=== PATIENT | male | born 1950 | race Caucasian/White ===

== ENCOUNTER 2016-10-24 19:43 | Emergency (ER) | payer MEDICARE, OTHER ==
[~2016-10-24] VITALS: Ht 177.8 cm; Wt 99.8 kg
[~2016-10-24 19:43] MED LIST: OMEP20CA9 PO
[2016-10-24] MEDS ORDERED: IV NORMAL SALINE 1000ML BAG 1,000 ML IV SCH (21:04)
[2016-10-24 21:12] LABS: BASO # 0.1 x10^3/uL (0.0-0.2); BASO % 1 % (0-3); EOS % 3 % (0-3); HEMATOCRIT 41.8 % (39.0-53.0); HEMOGLOBIN 14.4 g/dL (13.0-17.5); LYMPH # 2.7 x10^3/uL (1.0-4.8); LYMPH % 32 % (24-48); MEAN CORPUSCULAR HEMOGLOBIN 32 pg (25-35); MEAN CORPUSCULAR HGB CONC 34 g/dL (31-37); MEAN CORPUSCULAR VOLUME 94 fL (79-100); MONO % 7 % (0-9); NEUT % 57 % (31-73); PLATELET COUNT 197 x10^3/uL (140-400); RED BLOOD COUNT 4.45 x10^6/uL (4.30-5.70); RED CELL DISTRIBUTION WIDTH 12.4 % (11.5-14.5); WHITE BLOOD COUNT 8.3 x10^3/uL (4.0-11.0)
[2016-10-24] MEDS ORDERED: FENTANYL PF 100 MCG/2 ML VIAL. IV PRN (21:15)
[2016-10-24 21:29] LABS: CALCIUM 9.1 mg/dL (8.5-10.1); GFR 74.5; POTASSIUM 4.1 mmol/L (3.5-5.1)
[2016-10-24 21:36] LABS: ALBUMIN 3.6 g/dL (3.4-5.0); ALBUMIN/GLOBULIN RATIO 1.1 (1.0-1.7); TOTAL BILIRUBIN 0.4 mg/dL (0.2-1.0); TOTAL PROTEIN 6.8 g/dL (6.4-8.2)
[2016-10-24 21:42] LABS: CKMB MASS 0.8 ng/mL (0.0-3.6); CREATINE KINASE 68 U/L (39-308)
[2016-10-24] MEDS ORDERED: ONDANSETRON PF 4 MG/2 ML VIAL. IV ONE (21:45)
--- NOTE | 2016-10-24 21:56 | RAD ---
PROCEDURE Limited abdominal ultrasound. HISTORY Epigastric and right upper quadrant pain. TECHNIQUE Real-time ultrasound imaging of the right upper quadrant of the abdomen is performed. COMPARISON None. FINDINGS The pancreas is obscured due to overlying bowel gas. The IVC is not well seen. The liver is increased in echogenicity. There is decreased through transmission. Portal flow is hepatopetal. Right hepatic lobe measures 15.7 cm, normal. Gallbladder is distended. There is no wall thickening. No cholelithiasis is identified. Common bile duct is normal in caliber measuring 5 millimeters. Right kidney length is 12 cm. There is an upper pole cortical cyst measuring up to 2.2 cm. IMPRESSION 1. Fatty infiltration of the liver. 2. No sonographic evidence of gallbladder disease. 3. Small right renal cyst. Electronically signed by: Harry Rebollar MD (Oct 24, 2016 21:54:45)
--- NOTE | 2016-10-24 22:09 | PHYS DOC ---
Past Medical History Past Medical History: Asthma, COPD, Diabetes-Type II, Hypertension Past Surgical History: Tonsillectomy, Other Additional Past Surgical Histo: 4 BACK SX, LEFT HAND, JAW SX, LEFT SHOULDER Alcohol Use: Occasionally Drug Use: Marijuana Adult General Chief Complaint Chief Complaint: ABDOMINAL PAIN HPI HPI Patient is a 66 year old male who presents with complaint of epigastric and right upper quadrant abdominal pain that started this morning. Patient states that he had an episode 2 weeks ago that resolved spontaneously. Patient states he woke this morning with sharp, cramping abdominal pain which he currently rates as 8 out of 10. Patient denies any associated fevers or shortness of breath but states that he has had nausea and diaphoresis associated with his symptoms. Patient has history of hypertension, COPD, and type 2 diabetes mellitus. Patient denies any history of similar symptoms before the past 2-3 weeks. The patient states that he was scheduled to have an ultrasound done in the next 3 days but due to the severity of pain the patient came to the emergency department for evaluation. Patient also Dr. Bills for primary care. Review of Systems Review of Systems Constitutional: Diaphoresis, Denies fever or chills [] Eyes: Denies change in visual acuity, redness, or eye pain [] HENT: Denies nasal congestion or sore throat [] Respiratory: Denies cough or shortness of breath [] Cardiovascular: Denies chest pain or edema [] GI: Abdominal pain, nausea, denies vomiting, bloody stools or diarrhea [] : Denies dysuria or hematuria [] Musculoskeletal: Denies back pain or joint pain [] Integument: Denies rash or skin lesions [] Neurologic: Denies headache, focal weakness or sensory changes [] Current Medications Current Medications Current Medications Medications (Trade) Dose Ordered Sig/Claudine Start Time Stop Time Status Last Admin Dose Admin Fentanyl Citrate 50 mcg 50 mcg PRN Q15MIN PRN 10/24/16 21:15 10/24/16 23:11 DC 10/24/16 21:15 50 MCG Ondansetron HCl (Zofran) 4 mg 1X ONCE 10/24/16 21:45 10/24/16 21:46 DC 10/24/16 21:14 4 MG Sodium Chloride (Iv Sodium Chloride 0.9% 1000ml Bag) 1,000 ml @ 1,000 mls/hr Q1H 10/24/16 21:04 4/11/17 22:03 DC 10/24/16 21:14 1,000 MLS/HR Allergies Allergies Allergies Coded Allergies Type Severity Reaction Last Updated Verified No Known Drug Allergies 04/18/16 No Physical Exam Physical Exam Constitutional: Alert, afebrile, appears in moderate discomfort. [] HENT: Normocephalic, atraumatic, bilateral external ears normal, oropharynx moist, no oral exudates, nose normal. [] Eyes: PERRLA, EOMI, conjunctiva normal, no discharge. [] Neck: Normal range of motion, no tenderness, supple, no stridor. [] Cardiovascular:Heart rate regular rhythm, no murmur [] Lungs & Thorax: Bilateral breath sounds clear to auscultation [] Abdomen: Bowel sounds normal, soft, epigastric and right upper quadrant tenderness to palpation with guarding, no rebound tenderness, no masses, no pulsatile masses. [] Skin: Warm, dry, no erythema, no rash. [] Back: No tenderness, no CVA tenderness. [] Extremities: No tenderness, no cyanosis, no clubbing, ROM intact, no edema. [] Neurologic: Alert and oriented X 3, normal motor function, normal sensory function, no focal deficits noted. [] Current Patient Data Vital Signs Vital Signs Date Time Temp Pulse Resp B/P Pulse Ox O2 Delivery O2 Flow Rate FiO2 10/24/16 22:56 54 18 150/80 97 Room Air 10/24/16 20:07 97.9 97.9 Lab Values Laboratory Tests Test 10/24/16 20:25 White Blood Count 8.3x10^3/uL (4.0-11.0) Red Blood Count 4.45x10^6/uL (4.30-5.70) Hemoglobin 14.4g/dL (13.0-17.5) Hematocrit 41.8% (39.0-53.0) Mean Corpuscular Volume 94fL (79-100) Mean Corpuscular Hemoglobin 32pg (25-35) Mean Corpuscular Hemoglobin Concent 34g/dL (31-37) Red Cell Distribution Width 12.4% (11.5-14.5) Platelet Count 197x10^3/uL (140-400) Neutrophils (%) (Auto) 57% (31-73) Lymphocytes (%) (Auto) 32% (24-48) Monocytes (%) (Auto) 7% (0-9) Eosinophils (%) (Auto) 3% (0-3) Basophils (%) (Auto) 1% (0-3) Neutrophils # (Auto) 4.8x10^3uL (1.8-7.7) Lymphocytes # (Auto) 2.7x10^3/uL (1.0-4.8) Monocytes # (Auto) 0.5x10^3/uL (0.0-1.1) Eosinophils # (Auto) 0.2x10^3/uL (0.0-0.7) Basophils # (Auto) 0.1x10^3/uL (0.0-0.2) Sodium Level 140mmol/L (136-145) Potassium Level 4.1mmol/L (3.5-5.1) Chloride Level 103mmol/L (98-107) Carbon Dioxide Level 27mmol/L (21-32) Anion Gap 10 (6-14) Blood Urea Nitrogen 13mg/dL (8-26) Creatinine 1.0mg/dL (0.7-1.3) Estimated GFR (Cockcroft-Gault) 74.5 BUN/Creatinine Ratio 13 (6-20) Glucose Level 103mg/dL (70-99) H Calcium Level 9.1mg/dL (8.5-10.1) Total Bilirubin 0.4mg/dL (0.2-1.0) Aspartate Amino Transferase (AST) 16U/L (15-37) Alanine Aminotransferase (ALT) 27U/L (16-63) Alkaline Phosphatase 119U/L (46-116) H Creatine Kinase 68U/L (39-308) Creatine Kinase MB (Mass) 0.8ng/mL (0.0-3.6) Creatine Kinase MB Relative Index % (0-4) Troponin I Quantitative < 0.017ng/mL (0.000-0.055) Total Protein 6.8g/dL (6.4-8.2) Albumin 3.6g/dL (3.4-5.0) Albumin/Globulin Ratio 1.1 (1.0-1.7) Lipase 249U/L (73-393) Laboratory Tests 10/24/16 20:25 Laboratory Tests 10/24/16 20:25 EKG EKG Interpreted by me: Heart rate 63, sinus rhythm, normal intervals, normal axis, no acute ST/T-wave abnormalities present [] Radiology/Procedures Radiology/Procedures [facility] [address] [place] [address] IMAGING REPORT Signed PATIENT: SUBHASH FISHMAN ACCOUNT: [id number] : 1950 LOCATION: ER AGE: 66 SEX: M EXAM STATUS: REG ER ORD. PHYSICIAN: SELVIN PATEL MD REASON: epigastric and right upper quadrant pain PROCEDURE: ABDOMEN LTD PROCEDURE Limited abdominal ultrasound. HISTORY Epigastric and right upper quadrant pain. TECHNIQUE Real-time ultrasound imaging of the right upper quadrant of the abdomen is performed. COMPARISON None. FINDINGS The pancreas is obscured due to overlying bowel gas. The IVC is not well seen. The liver is increased in echogenicity. There is decreased through transmission. Portal flow is hepatopetal. Right hepatic lobe measures 15.7 cm, normal. Gallbladder is distended. There is no wall thickening. No cholelithiasis is identified. Common bile duct is normal in caliber measuring 5 millimeters. Right kidney length is 12 cm. There is an upper pole cortical cyst measuring up to 2.2 cm. IMPRESSION 1. Fatty infiltration of the liver. 2. No sonographic evidence of gallbladder disease. 3. Small right renal cyst. Electronically signed by: Harry Rebollar MD (Oct 24, 2016 21:54:45) DICTATED and SIGNED BY: HARRY REBOLLAR MD DATE: 10/24/162153 CC: SELVIN PATEL MD; GENA BILLS MD ~ [] Course & Med Decision Making Course & Med Decision Making Pertinent Labs and Imaging studies reviewed. (See chart for details) Patient was given IV fluids, fentanyl, and Zofran. On reevaluation, patient states that his symptoms have resolved at this time. The patient's ultrasound did not reveal evidence of cholelithiasis but did show signs of gallbladder distention. After speaking with the patient, he stated that he was scheduled to have an upper GI study done through Dr. Perez's office. I did recommend that if further imaging did not reveal acute evidence of cause of patient's symptoms that a nuclear medicine hepatobiliary scan may be necessary to evaluate for possible gallbladder dysfunction as a cause for his symptoms. Advised that the patient follow-up with his primary doctor in the next 2-3 days. Patient was prescribed Bentyl and advised to continue on Tylenol and acid reducing medication at home until follow-up. Advised return emergency department for any worsening symptoms. Patient voiced understanding and in agreement with treatment plan. Dragon Disclaimer Dragon Disclaimer This electronic medical record was generated, in whole or in part, using a voice recognition dictation system. Departure Departure Impression: Primary Impression: Abdominal pain Disposition: HOME, SELF-CARE Condition: IMPROVED Referrals: GENA BILLS MD (PCP) Patient Instructions: Abdominal Pain (Nonspecific) Additional Instructions: follow-up in 2-3 days with your primary doctor. Return to the emergency department for any worsening symptoms. Scripts Dicyclomine Hcl (Bentyl)10 Mg Capsule1 Cap PO TID #30 CAP Ref 0 Prov:SELVIN PATEL MD 10/24/16 Problem Qualifiers Primary Impression: Abdominal pain Abdominal location: epigastric Qualified Code: R10.13 - Epigastric pain SELVIN PATEL MD Oct 24, 2016 22:09
[2016-10-24] MEDS ORDERED: DICY10CA53 PO (22:36)
[2016-10-24 22:56] VITALS: BP 150/80
--- NOTE | 2016-10-25 06:47 | EKG ---
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
--- NOTE | 2016-10-25 08:53 | RAD ---
Portable AP upright view CXR: Clinical indications: Chest pain today. Epigastric pain. Comparison: January 13, 2010 Findings: No acute lung infiltrate or pleural effusion or pulmonary edema or lung mass or pneumothorax is seen. The heart size, pulmonary vasculature, mediastinum and both darius are unremarkable. Impression: No acute radiographic abnormality is seen.
== END 2016-10-24 23:00 | disposition home or self-care (01) ==
LOC: ER 19:43
DX: R10.13 Epigastric pain (principal); E11.9 Type 2 diabetes mellitus without complications; I10 Essential (primary) hypertension; J44.9 Chronic obstructive pulmonary disease, unspecified; F12.10 Cannabis abuse, uncomplicated; Z90.89 Acquired absence of other organs
CPT/HCPCS: 36415; 71010; 76705; 80053; 82553; 83690; 84484; 85027; 93005; 96361; 96374; 96375; 99285; J2405; J3010; J7030

== ENCOUNTER → 2016-10-27 | Outpatient (CLI) | payer MEDICARE, OTHER ==
[~2016-10-27] VITALS: Ht 177.8 cm; Wt 99.8 kg
[~2016-10-27] MED LIST changes: +DICY10CA53 PO; +MORPHINE SULFATE 2 MG/ML DISP.SYRIN. IV ONE; +MORPHINE SULFATE 4 MG/ML DISP.SYRIN. IM ONE; +MORPHINE SULFATE 4 MG/ML DISP.SYRIN. IV ONE; +MORPHINE SULFATE 4 MG/ML DISP.SYRIN. ONE
[2016-10-27 08:35] VITALS: BP 110/64
[2016-10-27 08:51] VITALS: BP 100/60
--- NOTE | 2016-10-27 10:41 | RAD ---
Radionuclide hepatobiliary scan, 10/27/2016: History: Abdominal pain, nausea Following IV injection of 5.5 mCi of technetium 99m Choletec there was prompt uptake of the radionuclide from the blood stream by the liver. Bile duct activity develops at 10 minutes. Small bowel bowel activity was evident at 25 minutes. Gallbladder activity did not develop during the first hour. The patient was therefore injected with 4 mg of morphine IV and additional imaging performed. Following the morphine injection, gallbladder activity did develop indicating patency of the cystic duct. IMPRESSION: 1. Delayed visualization of the gallbladder. The cystic duct is patent. 2. The hepatobiliary scan is otherwise unremarkable.
== END | disposition home or self-care (01) ==
LOC: US 06:39
PROVIDERS: ATTEND Internal Medicine Gastroenterology
DX: R10.11 Right upper quadrant pain (principal); R12 Heartburn
CPT/HCPCS: 78226; 96374; 96375; A9537; J2270

== ENCOUNTER 2016-11-20 11:45 | Observation (INO) | payer MEDICARE, OTHER ==
[~2016-11-20] VITALS: Ht 177.8 cm; Wt 99.8 kg
[~2016-11-20 11:45] MED LIST changes: +BUPIVAC MPF-EPI 0.5%-1:200000 30 ML VIAL. ONE; +DIPH25CA58 PO; +IOHEXOL 300 MG/ML 50 ML VIAL. ONE; +IV RINGERS,LACTATED 1000ML 1,000 ML IV SCH; +LIDOCAINE 1% 1 ML SYRINGE. ID PRN; +LIDOCAINE 2% 100 MG/5 ML SYRINGE. ONE; -MORPHINE SULFATE 2 MG/ML DISP.SYRIN. IV ONE; +MORPHINE SULFATE 2 MG/ML DISP.SYRIN. IV PRN; -MORPHINE SULFATE 4 MG/ML DISP.SYRIN. IM ONE; -MORPHINE SULFATE 4 MG/ML DISP.SYRIN. IV ONE; -MORPHINE SULFATE 4 MG/ML DISP.SYRIN. ONE; +ONDANSETRON PF 4 MG/2 ML VIAL. IV PRN; +PROCHLORPERAZINE 10 MG/2 ML VIAL. IV PRN; +PROPOFOL 20 ML IV ONE; +ROCURONIUM 50 MG/5 ML VIAL. ONE; +SUCCINYLCHOLINE 200 MG/10 ML VIAL. ONE; +SURGICEL HEMOSTAT 4X8 EACH. ONE; +fentaNYL PF VIAL 100 MCG/2 ML VIAL IV PRN; +fentaNYL PF VIAL 100 MCG/2 ML VIAL ONE
[2016-11-20] MEDS ORDERED: ACETAMINOPHEN INTRAVENOUS 100 ML IV ONE (12:39)
[2016-11-20] MEDS ORDERED: DEXAMETHASONE SOD PHOS 20 MG/5 ML VIAL. ONE (12:54)
[2016-11-20] MEDS ORDERED: DESFLURANE 31 TO 60 MINUTES IH ONE (12:54)
[2016-11-20] MEDS ORDERED: GLYCOPYRROLATE 1 MG/5 ML VIAL. ONE (12:55)
[2016-11-20] MEDS ORDERED: ONDANSETRON PF 4 MG/2 ML VIAL. ONE (12:55)
[2016-11-20] MEDS ORDERED: NEOSTIGMINE METHYLSULFATE 5 MG/5 ML SYRINGE. ONE (12:56)
[2016-11-20] MEDS ORDERED: fentaNYL PF VIAL 100 MCG/2 ML VIAL ONE (12:59)
[2016-11-20] MEDS ORDERED: LABETALOL 20 MG/4 ML DISP.SYRIN. ONE (13:07)
--- NOTE | 2016-11-20 13:28 | RAD ---
Indication: Intraoperative claims gram. Fluoroscopy was provided for the performance of an intraoperative cholangiogram. Contrast has been injected via the cystic duct remnant. There is contrast within nondilated intrahepatic and extra hepatic bile ducts. 4 images were obtained. No filling defect is identified to suggest retained stone. There is contrast in the duodenum. 0.2 minutes of fluoroscopy time was utilized Impression: No evidence of retained common duct stone.
[2016-11-20] MEDS ORDERED: IV 1/2 NORMAL SALINE 1,000 ML IV SCH (13:59)
--- NOTE | 2016-11-20 13:59 | PDOC4 ---
Operative Note Operative Note Operative Note: Preoperative Diagnosis: Acalculous cholecystitis Postoperative Diagnosis: Same Procedure: Laparoscopic cholecystectomy with intraoperative cholangiogram Surgeons: Silvio Anesthesia: GenSandy Estimated Blood Loss: 20 mL Specimen: Gallbladder to pathology Drains: None Complications: None Indications: The patient is a 66-year-old male who is been experiencing recurrent upper abdominal pain consistent with biliary colic. He underwent a thorough GI evaluation. This included a PIPIDA scan which showed delayed visualization of the gallbladder requiring morphine administration. He was referred for concern of acalculus cholecystitis. Surgical treatment was offered by means of a laparoscopic cholecystectomy. The risks of surgery were discussed which include bleeding, infection, bile duct injury, bile leak, pain, the potential for additional surgeries or procedures. The patient understands and would like to proceed. Description: The patient was taken to the operating room and laid supine on the operating table. General anesthesia was performed. The abdomen was prepped with ChloraPrep and draped in a standard surgical fashion. A small infraumbilical incision was made with a scalpel. The Veress needle was then inserted and a pneumoperitoneum was then created. A 5 mm trocar was then inserted and the laparoscope was introduced. In the upper midabdomen a 5 mm trocar was inserted and in the right upper quadrant two 5 mm trochars were inserted. The gallbladder was retracted cephalad. The gallbladder showed a prominent fibrotic reaction consistent with chronic cholecystitis. The cystic duct was dissected free from surrounding tissues. One clip was placed on the duct near the gallbladder junction. An opening was made in the duct and a cholangiocatheter placed within and secured with a clip. Using contrast dye and fluoroscopy an intraoperative cholangiogram was performed that appeared unremarkable. The clip and catheter were then withdrawn. Three clips were placed on the cystic duct and it was divided. The cystic artery was then identified, dissected free, doubly clipped and divided as well. The gallbladder was then mobilized away from the liver with cautery. The umbilical 5 millimeter trocar was exchanged for an 11 millimeter trocar. The gallbladder was then placed in an endoscopic bag and extracted at the umbilical trocar site. The fascia there was closed with an 0 Vicryl suture. All blood and irrigation fluid was suctioned and hemostasis was good. The remaining ports were removed and the pneumoperitoneum was relieved. The skin incisions were injected with half percent Marcaine with epinephrine, and all were closed using 4-0 Monocryl suture. Steri-Strips and dressings were then applied. The patient tolerated the procedure well and was sent to the recovery room in stable condition. At the end of the case all counts were correct. MAEVE PEREZ MD November 20, 2016 13:59
[2016-11-20] MEDS ORDERED: 0.9 % SODIUM CHLORIDE 10 ML DISP.SYRIN. IV PRN (14:00)
[2016-11-20] MEDS ORDERED: ONDANSETRON PF 4 MG/2 ML VIAL. IV PRN (14:00)
[2016-11-20] MEDS ORDERED: oxyCODONE/APAP 5/325 1 TAB TABLET PO PRN ×2 (14:00)
[2016-11-20] MEDS ORDERED: HYDROmorphone 2 MG/ML VIAL IV PRN (14:00)
[2016-11-20] MEDS: fentaNYL PF VIAL 100 MCG/2 ML VIAL IV PRN ×2 (14:17→14:45)
[2016-11-20] MEDS: HYDROmorphone 2 MG/ML VIAL IV PRN ×4 (14:54→16:55)
[2016-11-20 19:00] VITALS: BP 129/61
[2016-11-20] MEDS ORDERED: ACETAMINOPHEN 325 MG TABLET. PO PRN (20:30)
[2016-11-20 23:00] VITALS: BP 118/43
[2016-11-21 03:00] VITALS: BP 113/53
--- NOTE | 2016-11-21 06:00 | ACF ---
Admission Forms Criteria GALLBLADDER OR BILE DUCT INFLAMMATION OR STONE Clinical Indications for Admission to Inpatient Care ( Place 'X' for any and all applicable criteria): Admission is indicated for patients with ANY ONE of the following(1)(2)(3)(4)(5) : [ ]I. Acute cholecystitis as indicated by ALL of the following: [ ]a) Right upper quadrant pain, mass, or tenderness [ ]b) Systemic signs of inflammation indicated by ANY ONE of the following: [ ]i) Fever [ ]ii) C-reactive protein level greater than 10 mg/L (95 nmol/L) [ ]iii) White blood cell count greater than 10,000/mm3 (10 x109/L) or less than 4000/mm3 (4 x109/L) [ ]II. Inpatient admission required rather than observation care (Also use Gallbladder or Bile Duct Inflammation or Stone: Observation Care as appropriate) because of ANY ONE of the following: [ ]a) Common bile duct obstruction diagnosed [ ]b) Vomiting that is severe or persistent [ ]c) Severe pain requiring acute inpatient management [ ]d) Signs of intestinal obstruction or peritonitis [A] [ ]e) Severe electrolyte abnormalities requiring inpatient care [ ]f) Absent bowel sounds with complete ileus(8) [ ]g) Hemodynamic instability [ ]h) High fever or infection requiring inpatient admission as indicated by ANY ONE of the following (9): [ ]1) Appropriate outpatient or observation care antimicrobial Treatment. unavailable, not effective, or not feasible [ ]2) Temperature greater than 104.9 degrees F (40.5 degrees C) (oral) [ ]3) Temperature greater than 103.1 degrees F (39.5 degrees C) (oral) or less than 96.8 degrees F (36 degrees C) (rectal) that does not respond to all emergency treatment measures [ ]4) Documented bacteremia [ ]i) IV fluid to replace significant ongoing losses (greater than 3 L/m2 per day) [ ]j) Percutaneous or open drainage (eg, abscess, biliary tract) procedures [X]k) Immediate inpatient surgery [ ]l) Other condition, treatment or monitoring requiring inpatient admission [ ]III. Acute cholangitis as indicated by ALL of the following(9)(10): [ ]a) Systemic signs of inflammation indicated by ANY ONE of the following: [ ]i) Fever [ ]ii) C-reactive protein level greater than 10 mg/L (95 nmol /L) [ ]iii) White blood cell count greater than 10,000/mm3 (10 x109/L) or less than 4000/mm3 (4 x109/L) [ ]b) Evidence of common bile duct disease indicated by ANY ONE of the following: [ ]i) Total serum bilirubin level greater than or equal to 2 mg/dL (34 micromoles/L) [ ]ii) Liver function test (alkaline phosphatase (ALP), r- glutamyltransferase (GGT), aspartate aminotransferase (AST), or alanine aminotransferase (ALT)) greater than 1.5 times the upper limit of normal[B] [ ]iii) Hepatobiliary imaging showing biliary dilatation or evidence of etiology (eg, stricture, stone, previously placed stent) Extended stay beyond goal length of stay may be needed for (1)(2)): [ ]a) Bacteremia or Hemodynamic instability [ ]b) Cholecystectomy [ ]c) Other surgical procedure(24) [ ]d) Percutaneous or endoscopic ultrasound-guided cholecystostomy The original [facility] [employer] content created by [facility] [employer] has been revised. The portions of the content which have been revised are identified through the use of italic text or in bold, and [facility] has neither reviewed nor approved the modified material. All other unmodified content is copyright [facility]. Please see references footnoted in the original [facility] edition 2016 OLGA BARAJAS November 21, 2016 06:00
[2016-11-21 07:00] VITALS: BP 134/53
[2016-11-21] MEDS ORDERED: PANTOPRAZOLE 40 MG TABLET.DR. PO SCH (07:30)
[2016-11-21 11:00] VITALS: BP 123/47
--- NOTE | 2016-11-21 11:57 | PDOC ---
PROGRESS NOTES Subjective Subjective doing well, not wanting pain meds Objective Objective Vital Signs Date Time Temp Pulse Resp B/P (MAP) Pulse Ox O2 Delivery O2 Flow Rate FiO2 11/21/16 11:00 98.1 60 18 123/47 (72) 92 Room Air 98.1 11/20/16 17:30 2.0 Intake and Output 11/21/16 07:00 Intake Total 1550 ml Balance 1550 ml Intake Oral 900 ml IV Total 650 ml # Voids 3 Physical Exam Abdomen: Soft Assessment Assessment Acalculous cholecystitis, POD 1 lap sheila Plan Plan of Care Discharge Comment Review of Relevant I have reviewed the following items betsy (where applicable) has been applied. Medications Current Medications Ondansetron HCl (Zofran) 4 mg PRN Q6HRS PRN IV NAUSEA/VOMITING; Start 11/20/16 at 07:00; Stop 11/21/16 at 06:59; Status DC Fentanyl Citrate (Fentanyl 2ml Vial) 25 mcg PRN Q5MIN PRN IV MILD PAIN; Start 11/20/16 at 07:00; Stop 11/21/16 at 06:59; Status DC Fentanyl Citrate (Fentanyl 2ml Vial) 50 mcg PRN Q5MIN PRN IV MODERATE PAIN Last administered on 11/20/16 14:45; Start 11/20/16 at 07:00; Stop 11/21/16 at 06: 59; Status DC Morphine Sulfate 1 mg PRN Q10MIN PRN IV SEVERE PAIN; Start 11/20/16 at 07:00; Stop 11/21/16 at 06:59; Status DC Ringer's Solution 1,000 ml @ 30 mls/hr Q24H IV Last administered on 11/20/16 12:23; Start 11/20/16 at 07:00; Stop 11/20/16 at 18:59; Status DC Lidocaine HCl 2 ml PRN 1X PRN ID PRIOR TO IV START; Start 11/20/16 at 07:00; Stop 11/21/16 at 06:59; Status DC Hydromorphone HCl (Dilaudid) 0.5 mg PRN Q10MIN PRN IV SEV PAIN, Second choice Last administered on 11/20/16 16:55; Start 11/20/16 at 07:00; Stop 11/21/16 at 06: 59; Status DC Prochlorperazine Edisylate (Compazine) 5 mg PACU PRN PRN IV NAUSEA, MRX1; Start 11/20/16 at 07:00; Stop 11/21/16 at 06:59; Status DC Cefazolin Sodium/ Dextrose 50 ml @ 100 mls/hr 1X PREOP PRN IV Prior to Surgery Last administered on 11/20/16 12:43; Start 11/20/16 at 08:00 Cellulose 1 each STK-MED ONCE .ROUTE ; Start 11/20/16 at 09:58; Stop 11/20/16 at 09:59; Status DC Bupivacaine HCl/ Epinephrine Bitart (Sensorcain-Mpf Epi 0.5%-1:[id number]) 30 ml STK -MED ONCE .ROUTE Last administered on 11/20/16 12:58; Start 11/20/16 at 09:58; Stop 11/20/16 at 09:59; Status DC Iohexol (Omnipaque 300 Mg/ml) 50 ml STK-MED ONCE .ROUTE Last administered on 12:58; Start 11/20/16 at 09:58; Stop 11/20/16 at 09:59; Status DC Propofol 20 ml @ As Directed STK-MED ONCE IV ; Start 11/20/16 at 10:35; Stop 11/20 at 10:36; Status DC Lidocaine HCl (Lidocaine HCl 2% Abboject) 100 mg STK-MED ONCE .ROUTE ; Start 11/20/16 at 10:35; Stop 11/20/16 at 10:36; Status DC Fentanyl Citrate (Fentanyl 2ml Vial) 100 mcg STK-MED ONCE .ROUTE ; Start at 10:35; Stop 11/20/16 at 10:36; Status DC Succinylcholine Chloride (Anectine) 200 mg STK-MED ONCE .ROUTE ; Start 11/20/16 at 10:35; Stop 11/20/16 at 10:36; Status DC Rocuronium [facility] (Zemuron) 50 mg STK-MED ONCE .ROUTE ; Start 11/20/16 at 11:02 ; Stop 11/20/16 at 11:03; Status DC Acetaminophen 100 ml @ As Directed STK-MED ONCE IV ; Start 11/20/16 at 12:39; Stop 11/20/16 at 12:40; Status DC Dexamethasone Sodium Phosphate (Decadron) 20 mg STK-MED ONCE .ROUTE ; Start 11/20 at 12:54; Stop 11/20/16 at 12:55; Status DC Desflurane (Suprane) 30 ml STK-MED ONCE IH ; Start 11/20/16 at 12:54; Stop at 12:55; Status DC Ondansetron HCl (Zofran) 4 mg STK-MED ONCE .ROUTE ; Start 11/20/16 at 12:55; Stop 11/20/16 at 12:56; Status DC Glycopyrrolate (Robinul) 1 mg STK-MED ONCE .ROUTE ; Start 11/20/16 at 12:55; Stop 11/20/16 at 12:56; Status DC Neostigmine Methylsulfate 5 mg STK-MED ONCE .ROUTE ; Start 11/20/16 at 12:56; Stop 11/20/16 at 12:57; Status DC Fentanyl Citrate (Fentanyl 2ml Vial) 100 mcg STK-MED ONCE .ROUTE ; Start at 12:59; Stop 11/20/16 at 13:00; Status DC Labetalol HCl (Normodyne) 20 mg STK-MED ONCE .ROUTE ; Start 11/20/16 at 13:07; Stop 11/20/16 at 13:08; Status DC Sodium Chloride (Normal Saline Flush) 3 ml QSHIFT PRN IV AFTER MEDS AND BLOOD DRAWS; Start 11/20/16 at 14:00 Sodium Chloride 1,000 ml @ 80 mls/hr [id number] IV ; Start 11/20/16 at 13:59; Stop 11/21/16 at 01:31; Status DC Oxycodone/ Acetaminophen (Percocet 5/325) 1 tab PRN Q4HRS PRN PO MILD PAIN, 1ST CHOICE; Start 11/20/16 at 14:00 Oxycodone/ Acetaminophen (Percocet 5/325) 2 tab PRN Q4HRS PRN PO MODERATE PAIN , SEVERE PAIN; Start 11/20/16 at 14:00 Hydromorphone HCl (Dilaudid) 0.2 mg PRN Q1HR PRN IV PAIN; Start 11/20/16 at 14: 00 Ondansetron HCl (Zofran) 4 mg PRN Q6HRS PRN IV NAUESA, 1ST CHOICE; Start at 14:00 Pantoprazole Sodium (Protonix) 40 mg DAILYAC PO ; Start 11/21/16 at 07:30 Acetaminophen (Tylenol) 650 mg PRN Q6HRS PRN PO MILD PAIN Last administered on 11/20/16t 20:49; Start 11/20/16 at 20:30 Active Scripts Active Bentyl (Dicyclomine Hcl) 10 Mg Capsule 1 Cap PO TID Reported Benadryl (Diphenhydramine Hcl) 25 Mg Capsule 1 Cap PO BID Omeprazole 20 Mg Capsule. 1 Cap PO DAILY Vitals/I & O Vital Sign - Last 24 Hours 11/20/16 11/20/16 11/20/16 11/20/16 12:09 13:50 13:50 13:55 Temp 98.4 98.9 98.4 98.9 Pulse 60 72 65 Resp 18 27 21 B/P (MAP) 145/71 217/119 179/85 Pulse Ox 96 95 96 O2 Delivery Room Air Mask Simple Mask Simple Mask O2 Flow Rate 5 5 10 11/20/16 11/20/16 11/20/16 11/20/16 14:10 14:25 14:40 14:55 Pulse 70 71 55 57 Resp 24 18 14 14 B/P (MAP) 179/85 176/83 165/72 152/72 Pulse Ox 100 93 91 91 O2 Delivery Simple Mask Room Air Room Air Nasal Cannula O2 Flow Rate 10 2 11/20/16 11/20/16 11/20/16 11/20/16 15:10 15:25 15:40 15:55 Pulse 64 68 63 70 Resp 14 12 12 12 B/P (MAP) 173/87 153/72 153/72 148/74 Pulse Ox 94 93 93 94 O2 Delivery Nasal Cannula Nasal Cannula Nasal Cannula Nasal Cannula O2 Flow Rate 2 2 2 2 11/20/16 11/20/16 11/20/16 11/20/16 16:10 16:25 16:40 16:55 Pulse 82 80 88 80 Resp 12 12 14 14 B/P (MAP) 138/74 119/61 129/68 134/60 Pulse Ox 93 94 96 93 O2 Delivery Nasal Cannula Nasal Cannula Nasal Cannula Nasal Cannula O2 Flow Rate 2 2 2 2 5/8/17 11/20/16 11/20/16 11/20/16 17:30 19:00 20:00 23:00 Temp 97.7 97.7 97.7 97.7 Pulse 71 65 Resp 18 18 B/P (MAP) 129/61 (83) 118/43 (68) Pulse Ox 92 93 O2 Delivery Nasal Cannula Room Air Room Air Room Air O2 Flow Rate 2.0 11/21/16 11/21/16 11/21/16 11/21/16 03:00 07:00 08:00 11:00 Temp 98.0 96.6 98.1 98.0 96.6 98.1 Pulse 63 62 60 Resp 20 20 18 B/P (MAP) 113/53 (73) 134/53 (80) 123/47 (72) Pulse Ox 93 92 92 O2 Delivery Room Air Room Air Room Air Room Air Intake and Output 11/20/16 11/20/16 11/21/16 15:00 23:00 07:00 Intake Total 650 ml 400 ml 500 ml Balance 650 ml 400 ml 500 ml MAEVE PEREZ MD November 21, 2016 11:57
--- NOTE | 2016-11-21 11:59 | DISCH ---
DISCHARGE INSTRUCTIONS Condition on Discharge Condition on Discharge: Stable Activity After Discharge Activity Instructions for Disc: Other, see below (no lifting over 20 lbs X 2 weeks) Diet after Discharge Diet after Discharge: Regular Follow-Up Follow up with: Dr Perez in 2 weeks, call for appt [phone] MAEVE PEREZ MD November 21, 2016 11:59
--- NOTE | 2016-11-21 12:01 | PDOC3 ---
Discharge Summary Visit Information Date of Admission: November 20, 2016 Date of Discharge: November 21, 2016 Final Diagnosis Acalculous cholecystitis Brief Hospital Course Allergies Allergies Coded Allergies Type Severity Reaction Last Updated Verified shellfish derived Allergy Intermediate SWELLING HIVES 11/20/16 Yes Vital Signs Vital Signs Date Time Temp Pulse Resp B/P (MAP) Pulse Ox O2 Delivery O2 Flow Rate FiO2 11/21/16 11:00 98.1 60 18 123/47 (72) 92 Room Air 98.1 11/20/16 17:30 2.0 Brief Hospital Course Mr. Farley is a 66 old male who underwent a laparoscopic cholecystectomy due to acalculous cholecystitis. His postoperative recovery was uneventful and he is to be discharged on POD 1. Discharge Information Follow Up: Weeks (2 weeks) Disposition/Orders: D/C to Home Scheduled Dicyclomine Hcl (Bentyl), 1 CAP PO TID Diphenhydramine Hcl (Benadryl), 1 CAP PO BID, (Reported) Omeprazole (Omeprazole), 1 CAP PO DAILY, (Reported) MAEVE PEREZ MD November 21, 2016 12:01
--- NOTE | 2016-11-23 12:46 | PATHOLOGY ---
PATHOLOGY REPORT * * * * * * * * FINAL DIAGNOSIS: Gallbladder, cholecystectomy: - Acute and chronic cholecystitis. (SKM:fahad; d/t: 11/23/2016) REPORT ELECTRONICALLY SIGNED BY: Gianni Tenorio M.D. DATE/TIME: 11/23/2016 12:46 * * * * * * * * GROSS PATHOLOGY: Received in formalin labeled "Stewart Farley, gallbladder sac with contents," is a 7.4 x 3.1 x 1.4 cm, intact gallbladder with pink-downey serosal surfaces. Opening the gallbladder reveals velvety and light green mucosa and an average wall thickness of 0.1 cm. Calculi are not present and no masses are noted grossly. [employer] sections from the body and fundus are submitted along with the proximal margin in cassette A1. (KAH; 11/22/2016) INITIAL CPT CODE(S): A; 40832 Professional services [place] [facility] [place] [address] Technical services performed by [facility] at [address] [place] [address]. SPECIMEN(S) RECEIVED: A.Gallbladder sac with contents CLINICAL HISTORY: Acalculous cholecystitis PATIENT: STEWART FARLEY /AGE: 9 1950 (Age: 66) PATIENT #: [id number] ALT CASE #: SPECIMEN COLLECTION DATE: 11/20/2016 SPECIMEN RECEIVED DATE: 11/21/2016 [facility] - [address] [place] [address] - PHONE: [phone] * * * END OF REPORT * * *
== END 2016-11-21 13:00 | disposition home or self-care (01) ==
LOC: SURG 11:45 → 4 NORTH 13:59
PROVIDERS: ADMIT Surgery; ATTEND Surgery
DX: K80.12 Calculus of gallbladder with acute and chronic cholecystitis without obstruction (principal)
CPT/HCPCS: 47563; 74300; C1769; C1782; G0378; G0379; J0131; J0330; J1100; J1170; J2405; J2704; J2710; J3010; J3490; J7030; Q9967; 88304

== ENCOUNTER → 2017-01-12 | Outpatient (CLI) | payer MEDICARE, OTHER ==
[~2017-01-12] MED LIST changes: -BUPIVAC MPF-EPI 0.5%-1:200000 30 ML VIAL. ONE; -IOHEXOL 300 MG/ML 50 ML VIAL. ONE; -IV RINGERS,LACTATED 1000ML 1,000 ML IV SCH; -LIDOCAINE 1% 1 ML SYRINGE. ID PRN; -LIDOCAINE 2% 100 MG/5 ML SYRINGE. ONE; -MORPHINE SULFATE 2 MG/ML DISP.SYRIN. IV PRN; -ONDANSETRON PF 4 MG/2 ML VIAL. IV PRN; -PROCHLORPERAZINE 10 MG/2 ML VIAL. IV PRN; -PROPOFOL 20 ML IV ONE; -ROCURONIUM 50 MG/5 ML VIAL. ONE; -SUCCINYLCHOLINE 200 MG/10 ML VIAL. ONE; -SURGICEL HEMOSTAT 4X8 EACH. ONE; -fentaNYL PF VIAL 100 MCG/2 ML VIAL IV PRN; -fentaNYL PF VIAL 100 MCG/2 ML VIAL ONE
--- NOTE | 2017-01-12 13:41 | RAD ---
Chest CT without contrast History: Follow-up of lung nodules. Comparison: April 18, 2016. Technique: Noncontrast helical CT scanning of the chest was performed. PQRS Compliance Statement: One or more of the following individualized dose reduction techniques were utilized for this examination: 1. Automated exposure control 2. Adjustment of the mA and/or kV according to patient size 3. Use of iterative reconstruction technique Findings: Previously seen noncalcified lung nodules measuring 4 mm or less in size are again noted and are unchanged consistent with a benign finding. No new lung nodule or lung infiltrate is seen. No pleural effusion or pneumothorax is seen. The proximal bronchial tree is patent. No focal aneurysmal dilatation of the thoracic aorta is seen. The heart size is normal and no pericardial effusion is seen. Mild calcified atheromatous disease of the coronary arteries is seen. No adrenal mass is seen. Diffuse fatty infiltration of the liver is evident. No osteolytic process is seen. A hemangioma of T12 is seen. IMPRESSION: Stable lung nodules measuring 4 mm or less in size consistent with a benign finding. No new lung nodules or new lung infiltrates are seen. Mild calcified atheromatous disease of the coronary arteries.
== END | disposition home or self-care (01) ==
LOC: CT 10:19
PROVIDERS: ATTEND Family Medicine
DX: R91.8 Other nonspecific abnormal finding of lung field (principal); F17.210 Nicotine dependence, cigarettes, uncomplicated
CPT/HCPCS: 71250

== ENCOUNTER 2017-04-09 02:21 | Inpatient (IN) | payer MEDICARE, OTHER ==
[~2017-04-09] VITALS: Ht 175.3 cm; Wt 98.0 kg
[2017-04-09 02:45] LABS: BASO # 0.1 x10^3/uL (0.0-0.2); BASO % 1 % (0-3); EOS % 1 % (0-3); HEMATOCRIT 41.2 % (39.0-53.0); HEMOGLOBIN 14.3 g/dL (13.0-17.5); LYMPH # 1.7 x10^3/uL (1.0-4.8); LYMPH % 13 % (24-48); MEAN CORPUSCULAR HEMOGLOBIN 33 pg (25-35); MEAN CORPUSCULAR HGB CONC 35 g/dL (31-37); MEAN CORPUSCULAR VOLUME 96 fL (79-100); MONO % 6 % (0-9); NEUT % 79 % (31-73); PLATELET COUNT 280 x10^3/uL (140-400); RED CELL DISTRIBUTION WIDTH 12.4 % (11.5-14.5); WHITE BLOOD COUNT 12.7 x10^3/uL (4.0-11.0)
[2017-04-09 02:56] LABS: CREATININE 1.1 mg/dL (0.7-1.3); GFR 66.6; POTASSIUM 4.1 mmol/L (3.5-5.1)
[2017-04-09] MEDS ORDERED: IV NORMAL SALINE 1000ML BAG 1,000 ML IV ONE (03:00)
[2017-04-09] MEDS ORDERED: HYDROmorphone 2 MG/ML VIAL IV ONE (03:00)
[2017-04-09] MEDS ORDERED: ONDANSETRON PF 4 MG/2 ML VIAL. IV ONE (03:00)
[2017-04-09 03:03] LABS: ALBUMIN 3.8 g/dL (3.4-5.0); TOTAL BILIRUBIN 2.4 mg/dL (0.2-1.0); TOTAL PROTEIN 7.6 g/dL (6.4-8.2)
--- NOTE | 2017-04-09 03:28 | PHYS DOC ---
Past Medical History Past Medical History: Asthma, COPD, Diabetes-Type II, Hypertension Past Surgical History: Cholecystectomy, Tonsillectomy, Other Additional Past Surgical Histo: 4 BACK SX, LEFT HAND, JAW SX, LEFT SHOULDER Alcohol Use: Occasionally Drug Use: Marijuana Adult General Chief Complaint Chief Complaint: MULTIPLE COMPLAINTS HPI HPI Patient is a 67 year old gentleman with a history significant for diabetes, COPD, hypertension, diabetes who is also status post cholecystectomy presents to the ER today complaining of diffuse abdominal pain which started approximately 11:30 PM tonight. Patient reports she's had 3-4 episodes of emesis. Patient reports the symptoms started after eating a hamburger from [employer]. Patient denies any fevers shakes chills. Patient has any cough cold or rhinorrhea. Patient has a dysuria frequency or urgency. Patient admits to drinking approximately a sixpack of alcohol today and insinuates that he's is a habitual drinker. Patient denies any history of pancreatitis in the past. Review of systems Constitutional: Denies fever or chills Eyes: Denies change in visual acuity, redness, or eye pain HENT: Denies nasal congestion or sore throat All other review systems are negative except as documented in the history of present illness portion. Physical exam Constitutional: Well developed, well nourished, no acute distress, non-toxic appearance. HENT: Normocephalic, atraumatic, bilateral external ears normal, oropharynx moist, no oral exudates, nose normal. Eyes: PERRLA, EOMI, conjunctiva normal, no discharge. Neck: Normal range of motion, no tenderness, supple, no stridor. Cardiovascular:Heart rate regular rhythm, Lungs & Thorax: Bilateral breath sounds clear to auscultation Aron Abdomen: l soft nondistended no rebound or guarding. Patient does have diffuse abdominal discomfort greatest in the and midepigastric area. Patient has normal active bowel sounds. Skin: Warm, dry, no erythema, no rash. Back: No tenderness, no CVA tenderness. Extremities: No tenderness, no cyanosis, no clubbing, ROM intact, no edema. Neurologic: Alert and oriented X 3, normal motor function, normal sensory function, no focal deficits noted. Psychologic: Affect normal, judgement normal, mood normal. Assessment and plan This is a 67-year-old gentleman who presents to the ER today with diffuse abdominal pain. Patient's workup in the ER is significant for a markedly elevated lipase of greater than 48,000. Patient's alcohol level was 0. Patient had a CT scan of his abdomen and pelvis which revealed dilatation of his duodenum and proximal portion of the jejunum. There is a small amount of stranding of the fat in the right upper quadrant of the abdomen adjacent to the cholecystectomy site as well as a duodenum and pancreatic head. This could be secondary to causes such as postoperative changes in the region given that the patient has had a cholecystectomy near that site in the past. He could also be secondary to duodenitis, duodenal ulcer, pancreatitis. Patient's symptoms are consistent with pancreatitis. I discussed the case with Dr. Haque who agrees with the plan to admit the patient for bowel rest and pain medicines. While in the ER the patient has received multiple doses of antiemetics and pain medicines. Patient received IV fluids. Patient is being transferred to the floor in stable condition. Current Medications Current Medications Current Medications Medications (Trade) Dose Ordered Sig/Claudine Start Time Stop Time Status Last Admin Dose Admin Fentanyl Citrate (Fentanyl 2ml Vial) 50 mcg PRN Q2HR PRN 04/09/17 03:30 04/10/17 03:29 04/09/17 04:19 50 MCG Hydromorphone HCl (Dilaudid) 1 mg 1X ONCE 04/09/17 03:00 04/09/17 03:01 DC 04/09/17 02:51 1 MG Info (Do NOT chart on this entry -- for MONITORING) 1 each PRN DAILY PRN 04/09/17 03:30 04/11/17 03:29 Iohexol (Omnipaque 300 Mg/ml) 75 ml 1X ONCE 04/09/17 03:30 04/09/17 03:31 DC 04/09/17 03:53 75 ML Ondansetron HCl (Zofran) 4 mg PRN Q8HRS PRN 04/09/17 03:30 04/10/17 03:29 Sodium Chloride 1,000 ml @ 125 mls/hr Q8H 04/09/17 03:25 04/10/17 03:24 04/09/17 04:25 125 MLS/HR Allergies Allergies Allergies Coded Allergies Type Severity Reaction Last Updated Verified shellfish derived Allergy Intermediate SWELLING HIVES 5/8/17 Yes Current Patient Data Vital Signs Vital Signs Date Time Temp Pulse Resp B/P (MAP) Pulse Ox O2 Delivery O2 Flow Rate FiO2 04/09/17 03:35 82 18 149/68 (95) 96 Room Air 04/09/17 02:31 98.6 98.6 Lab Values Laboratory Tests Test 04/09/17 02:36 White Blood Count 12.7 x10^3/uL (4.0-11.0) H Red Blood Count 4.30 x10^6/uL (4.30-5.70) Hemoglobin 14.3 g/dL (13.0-17.5) Hematocrit 41.2 % (39.0-53.0) Mean Corpuscular Volume 96 fL (79-100) Mean Corpuscular Hemoglobin 33 pg (25-35) Mean Corpuscular Hemoglobin Concent 35 g/dL (31-37) Red Cell Distribution Width 12.4 % (11.5-14.5) Platelet Count 280 x10^3/uL (140-400) Neutrophils (%) (Auto) 79 % (31-73) H Lymphocytes (%) (Auto) 13 % (24-48) L Monocytes (%) (Auto) 6 % (0-9) Eosinophils (%) (Auto) 1 % (0-3) Basophils (%) (Auto) 1 % (0-3) Neutrophils # (Auto) 10.0 x10^3uL (1.8-7.7) H Lymphocytes # (Auto) 1.7 x10^3/uL (1.0-4.8) Monocytes # (Auto) 0.7 x10^3/uL (0.0-1.1) Eosinophils # (Auto) 0.2 x10^3/uL (0.0-0.7) Basophils # (Auto) 0.1 x10^3/uL (0.0-0.2) Sodium Level 137 mmol/L (136-145) Potassium Level 4.1 mmol/L (3.5-5.1) Chloride Level 100 mmol/L (98-107) Carbon Dioxide Level 25 mmol/L (21-32) Anion Gap 12 (6-14) Blood Urea Nitrogen 10 mg/dL (8-26) Creatinine 1.1 mg/dL (0.7-1.3) Estimated GFR (Cockcroft-Gault) 66.6 BUN/Creatinine Ratio 9 (6-20) Glucose Level 288 mg/dL (70-99) H Calcium Level 9.0 mg/dL (8.5-10.1) Total Bilirubin 2.4 mg/dL (0.2-1.0) H Aspartate Amino Transferase (AST) 144 U/L (15-37) H Alanine Aminotransferase (ALT) 184 U/L (16-63) H Alkaline Phosphatase 271 U/L (46-116) H Troponin I Quantitative < 0.017 ng/mL (0.000-0.055) Total Protein 7.6 g/dL (6.4-8.2) Albumin 3.8 g/dL (3.4-5.0) Albumin/Globulin Ratio 1.0 (1.0-1.7) Lipase 65469 U/L (73-393) H Ethyl Alcohol Level < 10 mg/dL (0-10) Laboratory Tests 04/09/17 02:36 Laboratory Tests 04/09/17 02:36 EKG EKG [] Radiology/Procedures Radiology/Procedures [] Course & Med Decision Making Course & Med Decision Making Pertinent Labs and Imaging studies reviewed. (See chart for details) [] Dragon Disclaimer Dragon Disclaimer This electronic medical record was generated, in whole or in part, using a voice recognition dictation system. Departure Departure Impression: Primary Impression: Abdominal pain Additional Impression: Pancreatitis Disposition: ADMITTED INPATIENT Admitting Physician: Gena Haque Condition: IMPROVED Referrals: GENA HAQUE MD (PCP) Problem Qualifiers LEMUEL HAMLIN MD Apr 09, 2017 03:28
[2017-04-09] MEDS ORDERED: IOHEXOL 300 MG/ML 75 ML VIAL IV ONE (03:30)
[2017-04-09] MEDS ORDERED: CONTRAST GIVEN MC PRN (03:30)
[2017-04-09] MEDS ORDERED: ONDANSETRON PF 4 MG/2 ML VIAL. IV PRN (03:30)
[2017-04-09 04:00] VITALS: BP 162/71
[2017-04-09] MEDS: fentaNYL PF VIAL 100 MCG/2 ML VIAL IV PRN ×2 (04:19→07:54)
[2017-04-09] MEDS: IV NORMAL SALINE 1000ML BAG 1,000 ML IV SCH ×3 (04:25→19:25)
--- NOTE | 2017-04-09 05:31 | RAD ---
INDICATION: ABDOMEN PAIN TONIGHT, EVAL FOR PANCREATITIS COMPARISON: None. TECHNIQUE: Axial CT images were obtained through the abdomen and pelvis with intravenous contrast. One or more of the following individualized dose reduction techniques were utilized for this examination: 1. Automated exposure control; 2. Adjustment of the mA and/or kV according to patient size; 3. Use of iterative reconstruction technique. FINDINGS: Mild dependent opacity at right lung base. There are couple suspected nodules at the lung bases measuring up to about 4 mm. Large amount of motion at the chest base obscures the partially visualized ascending thoracic aorta moderate calcific atherosclerosis. Infrarenal abdominal aortic ectasia with abdominal aorta measuring up to about 29 mm. Small to moderate fat-containing inguinal hernias. Postcholecystectomy changes. There is some stranding to the fat seen within the right upper quadrant of the abdomen adjacent to the dilated duodenum, cholecystectomy side as well as the pancreatic head/uncinate process. Dilated loops of proximal small bowel are seen with distal decompression. Spleen unremarkable. No left-sided hydronephrosis. No right-sided hydronephrosis. 24 mm right renal cystic lesion. Bladder is partially distended. Prostate is prominent in size. Small fat-containing inguinal hernias. Colonic diverticulosis. Apparent wall thickening of the stomach versus region of contraction. No evidence of periappendiceal inflammation. Small fat-containing umbilical hernia. There is some sclerosis adjacent to sacroiliac joints. Could be from causes such as chronic sacroiliitis. Degenerative changes of the spine. Postoperative changes status post posterior spinal fusion with pedicle screws and stabilizing serena at L3-4. There is also metallic cage at the L4-5 disc space. Multilevel central canal and neural foraminal stenosis. IMPRESSION: 1. Dilatation of the duodenum and proximal portion of the jejunum. Causes such as a proximal small bowel obstruction are within the differential given this finding. 2. There is a small amount of stranding of the fat in the right upper quadrant the abdomen adjacent to the cholecystectomy site as well as the duodenum and pancreatic head/uncinate process. This could be secondary to causes such as postoperative changes to the region given that the patient has had a cholecystectomy near the site but a small amount of edema from causes such as duodenitis, duodenal ulcer or pancreatitis is also within the differential. 3. Multiple small pulmonary nodules suspected at lung bases measuring up to about 4 mm. 4. The stomach is not very distended but the wall does appear prominent in some portions. Could be from a region of contraction but real wall thickening from causes such as gastritis or a lesion in the area is not excluded on this examination. 5. Cystic lesion of the right kidney. If more complete characterization is desired ultrasound could be obtained to ensure that there is no complex component. Fleischner Society recommendations for solitary solid lung nodule follow up.: In a low risk patient: <6mm - No follow up required. 6-8mm - 6-[address], then CT at 18-24 months. >8mm - CT at 3 months, PET/CT or tissue sampling. In a high risk patient (history of smoking or other known risk factors): <6mm - Follow up CT at 12 months. 6-8mm - 6-[address], then CT at 18-24 months. >8mm - CT at 3 months, PET/CT or tissue sampling. Fleischner Society recommendations for multiple solid lung nodule follow up.: In a low risk patient: <6mm - No follow up required. 6-8mm - 3-[address], then CT at 18-24 months. >8mm - CT at 3-6 months, then at 18-24 months. PET/CT or tissue sampling based on most suspicious nodule. In a high risk patient (history of smoking or other known risk factors): <6mm - Follow up CT at 12 months. 6-8mm - 3-[address], then CT at 18-24 months. >8mm - CT at 3-6 months, PET/CT or tissue sampling option based on most suspicious nodule. Electronically signed by: Mannie Haque MD (04/09/2017 5:27 AM) [facility]
--- NOTE | 2017-04-09 06:30 | EKG ---
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
[2017-04-09 07:10] VITALS: BP 146/51
--- NOTE | 2017-04-09 08:14 | RAD ---
EXAM: Chest one view. HISTORY: Chest pain. COMPARISON: 10/24/2016. FINDINGS: A frontal view of the chest is obtained. There are no confluent infiltrates. There is no pneumothorax or pleural effusion. The heart is not enlarged. IMPRESSION: 1. No confluent infiltrates.
[2017-04-09] MEDS ORDERED: THIAMINE 100 MG in IV NORMAL SALINE 50ML 50 ML IV ONE (09:00)
--- NOTE | 2017-04-09 09:06 | HP ---
ADMIT DATE: 04/09/2017 DATE OF SERVICE: 04/09/2017 CHIEF COMPLAINT: Abdominal pain. HISTORY OF PRESENT ILLNESS: A 67-year-old white male with known prediabetes, had a gallbladder surgery about a month ago, went for recovery, but then developed epigastric pain radiating through to the back on the day prior to admission. He drinks "3-5 beers a day" normally and has been drinking about the usual amount. He was found to have pancreatitis based on very high lipase on admission. He has never had this before. PAST MEDICAL HISTORY: Cholecystectomy, back surgery. He is prediabetic, last A1c was 6.4 in 12/2016. MEDICATIONS: He takes omeprazole for acid reflux. ALLERGIES: LISTED TO SHELLFISH. No drugs. SOCIAL HISTORY: Quit smoking recently after a long tobacco history, drinks as above. , disabled. FAMILY HISTORY: Unremarkable. REVIEW OF SYSTEMS: No other complaints. PHYSICAL EXAMINATION: ENT: All within normal limits. NECK: No masses, nodes or bruits. LUNGS: Clear. CARDIOVASCULAR: Regular rate. No ____ or murmur. ABDOMEN: Very tender in the epigastrium, guarding in the lower quadrants. Bowel sounds diminished. No masses are felt. EXTREMITIES: Good pedal and right radial pulse. 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 NEUROLOGIC: Physiologic, no tremors. ASSESSMENT: Acute pancreatitis, likely alcohol induced. He also has a degree of alcoholic hepatitis present as well. Prediabetes may have evolved into mild diabetes at this point. PLAN: As ordered. GENA BILLS MD DR: HINA/mario JOB#: [id number] / [id number]
[2017-04-09] MEDS: PANTOPRAZOLE 40 MG TABLET.DR. PO SCH (09:52)
[2017-04-09] MEDS: POTASSIUM CL 20MEQ D5-0.45NACL 1,000 ML IV SCH ×2 (09:55→19:18)
[2017-04-09] MEDS: HYDROmorphone 2 MG/ML VIAL IVP PRN ×3 (10:10→19:19)
[2017-04-09 11:10] VITALS: BP 145/54
[2017-04-09 15:34] VITALS: BP 137/65
[2017-04-09 19:53] VITALS: BP 134/58
[2017-04-09 23:14] VITALS: BP 122/59
[2017-04-10] MEDS: fentaNYL PF VIAL 100 MCG/2 ML VIAL IV PRN (02:47)
[2017-04-10 03:25] VITALS: BP 125/62
[2017-04-10] MEDS: POTASSIUM CL 20MEQ D5-0.45NACL 1,000 ML IV SCH ×2 (04:58→17:28)
[2017-04-10 07:00] VITALS: BP 134/65
[2017-04-10] MEDS: PANTOPRAZOLE 40 MG TABLET.DR. PO SCH (09:10)
[2017-04-10] MEDS: CETIRIZINE HCL 10 MG TABLET. PO SCH (09:10)
[2017-04-10] MEDS: HYDROcodone/APAP 7.5/325MG 1 TAB TABLET PO PRN ×2 (09:11→15:48)
[2017-04-10 09:56] LABS: ALBUMIN 3.2 g/dL (3.4-5.0); DIRECT BILIRUBIN 0.9 mg/dL (0.0-0.2); TOTAL BILIRUBIN 1.6 mg/dL (0.2-1.0); TOTAL PROTEIN 7.1 g/dL (6.4-8.2)
[2017-04-10 11:23] VITALS: BP 132/58
[2017-04-10 14:57] VITALS: BP 125/59
[2017-04-10] MEDS: KETOROLAC 30 MG/ML INJ. IV PRN ×2 (17:29→23:41)
[2017-04-10 19:00] VITALS: BP 131/68
[2017-04-10 23:00] VITALS: BP 125/52
[2017-04-11 03:00] VITALS: BP 109/44
[2017-04-11 06:53] VITALS: BP 142/64
[2017-04-11] MEDS: CETIRIZINE HCL 10 MG TABLET. PO SCH (08:02)
[2017-04-11] MEDS: PANTOPRAZOLE 40 MG TABLET.DR. PO SCH (08:02)
[2017-04-11] MEDS: HYDROcodone/APAP 7.5/325MG 1 TAB TABLET PO PRN ×2 (08:16→16:37)
--- NOTE | 2017-04-11 08:16 | PDOC ---
Provider Note Provider Note feels better, tender epigas nodule likely a cyst- lipase better, TAs better- will do fl, dc iv- can see dr bone re mas resection as op GENA BILLS MD Apr 11, 2017 08:15
[2017-04-11 11:10] VITALS: BP 140/55
[2017-04-11 15:22] VITALS: BP 141/57
[2017-04-11 19:41] VITALS: BP 102/59
[2017-04-11] MEDS: KETOROLAC 30 MG/ML INJ. IV PRN (20:24)
[2017-04-11 23:00] VITALS: BP 112/55
[2017-04-12 03:00] VITALS: BP 128/42
[2017-04-12 07:10] VITALS: BP 142/60
[2017-04-12] MEDS: PANTOPRAZOLE 40 MG TABLET.DR. PO SCH (07:52)
[2017-04-12] MEDS: CETIRIZINE HCL 10 MG TABLET. PO SCH (07:52)
--- NOTE | 2017-04-12 08:33 | DISCH ---
DISCHARGE INSTRUCTIONS Condition on Discharge Condition on Discharge: Stable Activity After Discharge Activity Instructions for Disc: No restrictions Diet after Discharge Diet after Discharge: Low Fat, Regular Follow-Up Follow up with: dr juice Bassett w GENA BILLS MD Apr 12, 2017 08:33
--- NOTE | 2017-04-12 08:37 | PDOC ---
Provider Note Provider Note [id number] GENA BILLS MD Apr 12, 2017 08:37
[2017-04-12 11:09] VITALS: BP 134/69
[2017-04-12] MEDS: HYDROcodone/APAP 7.5/325MG 1 TAB TABLET PO PRN (13:00)
--- NOTE | 2017-04-12 15:55 | DS ---
DATE OF DISCHARGE: 04/12/2017 HOSPITAL SUMMARY: The patient came in with pancreatitis presumably due to alcohol excessive intake. His CBC was unremarkable on admission. Chemistry profile showed elevated transaminases, AST 144, ALT 184, bilirubin 2.4, no direct fraction was done. The lipase was high at around 50,000, chemistry profile otherwise normal. Lipase came down to 1900 the next day and bilirubin down to 1.6 and transaminases reduced by more than half. Hemoglobin A1c was 6.2 consistent with outpatient studies. Urine drug screen was negative and no alcohol was present. CT scan showed evidence of small amount of fat stranding around the head of the pancreas, otherwise unremarkable and was felt to be consistent with clinical pancreatitis that the patient had. Chest x-ray was clear. He received IV fluids and dietary restrictions and pain medications. He improved clinically and was able to tolerate full liquids and today a regular diet and as he has no further pain, he will be discharged and followed as an outpatient. FINAL DIAGNOSES: 1. Acute pancreatitis, likely secondary to alcohol abuse. 2. Acute transaminitis, likely secondary to alcohol abuse. 3. Prediabetes. OPERATIONS, PROCEDURES, COMPLICATIONS, AND CONSULTATIONS: None. DISPOSITION: Home meds remain the same. He is taking Zyrtec 10 mg daily for itching which seems to help him better than Benadryl. Low fat diet, complete alcohol avoidance. We will see him in 1 week in followup. PROGNOSIS: Guarded. GENA BILLS MD DR: HINA/mario JOB#: [id number] / [id number]
== END 2017-04-12 14:00 | disposition home or self-care (01) | DRG 440 ==
LOC: ER 02:21 → 6 SOUTH 03:43
PROVIDERS: ADMIT Family Medicine; ATTEND Family Medicine
DX: K85.20 Alcohol induced acute pancreatitis without necrosis or infection (principal); K70.10 Alcoholic hepatitis without ascites; J44.9 Chronic obstructive pulmonary disease, unspecified; I10 Essential (primary) hypertension; E11.9 Type 2 diabetes mellitus without complications; F10.10 Alcohol abuse, uncomplicated; Z87.891 Personal history of nicotine dependence; Z90.49 Acquired absence of other specified parts of digestive tract; F12.90 Cannabis use, unspecified, uncomplicated; Z91.013 Allergy to seafood
CPT/HCPCS: 36415; 71010; 74177; 80053; 80076; 82962; 83036; 83690; 84484; 85025; 93005; 96361; 96374; 96375; G0480; J1170; J1885; J2405; J3010; J7030; Q9967; 99285-25

== ENCOUNTER → 2017-04-24 | Outpatient (CLI) | payer MEDICARE, OTHER ==
[2017-04-12 11:09] VITALS: BP 134/69
--- NOTE | 2017-04-24 10:51 | RAD ---
Exam performed: Ultrasound evaluation of the epigastric region. History: Palpable nodules in the chest and epigastric region. Date of service: 04/24/17. Comparison: None available Discussion: Target sonographic evaluation of the epigastric and lower chest region is performed in the area of concern. No definite solid or cystic mass lesions or fluid collections are identified. Impression: Negative exam. Patient may be followed up clinically. If symptoms persist, additional evaluation with CT with contrast may be of additional benefit
== END | disposition home or self-care (01) ==
LOC: US 15:53
PROVIDERS: ATTEND Family Medicine
DX: K66.8 Other specified disorders of peritoneum (principal); R19.00 Intra-abdominal and pelvic swelling, mass and lump, unspecified site
CPT/HCPCS: 76604

== ENCOUNTER → 2018-11-18 | Outpatient (CLI) | payer MEDICARE, OTHER ==
[~2018-11-18] MED LIST changes: +OMEP20CA10 PO; -OMEP20CA9 PO
--- NOTE | 2018-11-18 12:02 | KCIC ---
EXAM: 3 views right shoulder DATE: 11/18/2018 12:00 AM INDICATION: Right shoulder pain COMPARISON: None FINDINGS: No evidence for acute fracture or dislocation. Glenohumeral joint osteoarthritis with flattening of the glenoid and inferior projecting osteophytes. AC joint degenerative changes are seen. Humeral head is not high riding. IMPRESSION: 1. No evidence of acute fracture or dislocation. 2. AC joint and glenohumeral joint osteoarthritis. Glenoid remodeling is seen. Electronically signed by: Keegan Muhammad MD (11/18/2018 11:59 AM) [id number]
--- NOTE | 2018-11-18 16:00 | KCIC ---
Chest CT low-dose screening study without contrast Clinical indications: Smoker for 62 years. Lung nodule followup. COMPARISON: January 12, 2017. April 18, 2016. TECHNIQUE: Low-dose noncontrast CT scanning of the chest was performed. PQRS compliance Statement One or more of the following individualized dose reduction techniques were utilized for this study: 1. Automated exposure control 2. Adjustment of the mA and/or kV according to patient size 3. Use of iterative reconstruction technique FINDINGS: No enlarged thoracic lymphadenopathy is evident. No focal aneurysmal dilatation of the thoracic aorta is seen. The heart size is normal and no pericardial effusion is seen. 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 Multiple bilateral subcentimeter lung nodules are seen which are stable from January 12, 2017. Some of these can be seen in 2016. That study was a [address] study however. Therefore, these most likely are benign. Recommend continued follow-up in one year to ensure stability over 2 years. No new lung nodule or lung infiltrate is seen. No pleural effusion or pneumothorax is evident. The proximal bronchial tree is patent. No lytic process is seen. IMPRESSION: Stable bilateral lung nodules. Lung RADS category 2. Recommend screening study in one year. 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
== END | disposition home or self-care (01) ==
LOC: KCIC CT 09:50
PROVIDERS: ATTEND Family Medicine
DX: Z12.2 Encounter for screening for malignant neoplasm of respiratory organs (principal); M19.011 Primary osteoarthritis, right shoulder; M25.711 Osteophyte, right shoulder; I25.10 Atherosclerotic heart disease of native coronary artery without angina pectoris; R91.8 Other nonspecific abnormal finding of lung field; F17.210 Nicotine dependence, cigarettes, uncomplicated
CPT/HCPCS: 73030; G0297

== ENCOUNTER 2019-05-19 16:24 | Emergency (ER) | payer MEDICARE, OTHER ==
[~2019-05-19] VITALS: Ht 177.8 cm; Wt 98.4 kg
[2019-05-19] MEDS ORDERED: IV NORMAL SALINE 1000ML BAG 1,000 ML IV SCH (17:18)
--- NOTE | 2019-05-19 17:24 | PHYS DOC ---
Past Medical History Past Medical History: Asthma, COPD, Diabetes-Type II, Hypertension (GENA CORRAL MD) Past Surgical History: Cholecystectomy, Tonsillectomy, Other Additional Past Surgical Histo: 4 BACK SX, LEFT HAND, JAW SX, LEFT SHOULDER (GENA CORRAL MD) Alcohol Use: Heavy (10-12 beers per day) Drug Use: Marijuana (GENA CORRAL MD) Adult General Chief Complaint Chief Complaint: ABDOMINAL PAIN HPI HPI Patient is a 69-year-old male, with a past history of diabetes, daily alcohol use, prior episodes of pancreatitis, history of cholecystectomy, who presents to the emergency department for evaluation of increasing abdominal pain over the p ast 24-36 hours. He has also had numerous episodes of nonbloody, watery diarrhea. He has not had any nausea or vomiting, the pain does radiate up into his chest. The pain feels similar to his prior episodes of pancreatitis. He denies any recent travel or antibiotic use. There are no alleviating or e xacerbating factors to his symptoms. (GENA CORRAL MD) Review of Systems Review of Systems Constitutional: Denies fever or chills [] Eyes: Denies change in visual acuity, redness, or eye pain [] HENT: Denies nasal congestion or sore throat [] Respiratory: Denies cough or shortness of breath [] Cardiovascular: No additional information not addressed in HPI [] GI: Denies nausea, vomiting, bloody stools or bloody emesis[] : Denies dysuria or hematuria [] Musculoskeletal: Denies back pain or joint pain [] Integument: Denies rash or skin lesions [] Neurologic: Denies headache, focal weakness or sensory changes [] Endocrine: Denies polyuria or polydipsia [] All other systems were reviewed and found to be within normal limits, except as documented in this note. (GENA CORRAL MD) Current Medications Current Medications Current Medications Medications (Trade) Dose Ordered Sig/Claudine Start Time Stop Time Status Last Admin Dose Admin Fentanyl Citrate (Fentanyl 2ml Vial) 50 mcg 1X ONCE 05/19/19 19:30 05/19/19 19:31 DC 05/19/19 19:25 50 MCG Info (CONTRAST GIVEN -- Rx MONITORING) 1 each PRN DAILY PRN 05/19/19 18:00 05/21/19 17:59 Iohexol (Omnipaque 300 Mg/ml) 75 ml 1X ONCE 05/19/19 18:30 05/19/19 18:31 DC 05/19/19 18:07 75 ML Magnesium Sulfate/ Dextrose 100 ml @ 100 mls/hr 1X ONCE 05/19/19 18:00 05/19/19 18:59 DC 05/19/19 19:12 100 MLS/HR Morphine Sulfate (Morphine Sulfate) 4 mg PRN Q15MIN PRN 05/19/19 17:30 05/20/19 17:29 05/19/19 19:12 4 MG Ondansetron HCl (Zofran) 4 mg 1X ONCE 05/19/19 17:30 05/19/19 17:31 DC 05/19/19 17:32 4 MG Sodium Chloride 1,000 ml @ 1,000 mls/hr Q1H 05/19/19 17:18 05/19/19 18:17 DC 05/19/19 17:32 1,000 MLS/HR (PROSPER ALCAZAR MD) Allergies Allergies Allergies Coded Allergies Type Severity Reaction Last Updated Verified shellfish derived Allergy Intermediate SWELLING HIVES 11/20/16 Yes (PROSPER ALCAZAR MD) Physical Exam Physical Exam PHYSICAL EXAM: CONSTITUTIONAL: Well developed, well nourished HEAD: normocephalic, atraumatic EENT: PERRL, EOMI. Conjunctivae normal color, sclerae non-icteric; moist mucous membranes. NECK: Supple, non-tender; no meningismus. LUNGS: Lungs CTA, breathing even and unlabored. Normal air movement. HEART: Regular rate and rhythm, no murmur CHEST: No deformity; non-tender ABDOMEN: The abdomen is soft, there is tenderness to palpation diffusely in the abdomen, most prominent in the epigastric area as well as the right lower quadrant, bowel sounds are present, there is no rebound or guarding, no masses or bruits. EXTREM: Normal ROM; no deformity, no calf tenderness. Normal pulses palpable in all extremities. There is no pedal edema. SKIN: No rash; no diaphoresis NEURO: Alert; normal speech and cognition; CN's grossly intact; strength grossly intact without focal deficit. BACK: No CVA TTP. (GENA CORRAL MD) Current Patient Data Vital Signs Vital Signs Date Time Temp Pulse Resp B/P (MAP) Pulse Ox O2 Delivery O2 Flow Rate FiO2 05/19/19 17:02 98.2 68 18 164/81 (108) 98 Room Air 98.2 (PROSPER ALCAZAR MD) Lab Values Laboratory Tests Test 05/19/19 17:20 05/19/19 19:00 White Blood Count 6.9 x10^3/uL (4.0-11.0) Red Blood Count 4.46 x10^6/uL (4.30-5.70) Hemoglobin 14.4 g/dL (13.0-17.5) Hematocrit 41.2 % (39.0-53.0) Mean Corpuscular Volume 92 fL (79-100) Mean Corpuscular Hemoglobin 32 pg (25-35) Mean Corpuscular Hemoglobin Concent 35 g/dL (31-37) Red Cell Distribution Width 13.1 % (11.5-14.5) Platelet Count 215 x10^3/uL (140-400) Neutrophils (%) (Auto) 56 % (31-73) Lymphocytes (%) (Auto) 35 % (24-48) Monocytes (%) (Auto) 6 % (0-9) Eosinophils (%) (Auto) 2 % (0-3) Basophils (%) (Auto) 1 % (0-3) Neutrophils # (Auto) 3.9 x10^3/uL (1.8-7.7) Lymphocytes # (Auto) 2.4 x10^3/uL (1.0-4.8) Monocytes # (Auto) 0.4 x10^3/uL (0.0-1.1) Eosinophils # (Auto) 0.1 x10^3/uL (0.0-0.7) Basophils # (Auto) 0.1 x10^3/uL (0.0-0.2) Prothrombin Time 13.5 SEC (11.7-14.0) Prothrombin Time INR 1.1 (0.8-1.1) Activated Partial Thromboplast Time 30 SEC (24-38) Sodium Level 139 mmol/L (136-145) Potassium Level 3.9 mmol/L (3.5-5.1) Chloride Level 100 mmol/L (98-107) Carbon Dioxide Level 26 mmol/L (21-32) Anion Gap 13 (6-14) Blood Urea Nitrogen 12 mg/dL (8-26) Creatinine 1.1 mg/dL (0.7-1.3) Estimated GFR (Cockcroft-Gault) 66.2 BUN/Creatinine Ratio 11 (6-20) Glucose Level 108 mg/dL (70-99) H Calcium Level 9.4 mg/dL (8.5-10.1) Magnesium Level 1.6 mg/dL (1.8-2.4) L Total Bilirubin 0.6 mg/dL (0.2-1.0) Aspartate Amino Transferase (AST) 17 U/L (15-37) Alanine Aminotransferase (ALT) 26 U/L (16-63) Alkaline Phosphatase 119 U/L (46-116) H Troponin I Quantitative < 0.017 ng/mL (0.000-0.055) Total Protein 8.0 g/dL (6.4-8.2) Albumin 4.2 g/dL (3.4-5.0) Albumin/Globulin Ratio 1.1 (1.0-1.7) Lipase 136 U/L (73-393) Ethyl Alcohol Level < 10 mg/dL (0-10) Urine Collection Type Void Urine Color Yellow Urine Clarity Clear Urine pH 6.0 Urine Specific Council 1.015 Urine Protein Negative mg/dL (NEG-TRACE) Urine Glucose (UA) Negative mg/dL (NEG) Urine Ketones (Stick) Negative mg/dL (NEG) Urine Blood Negative (NEG) Urine Nitrite Negative (NEG) Urine Bilirubin Negative (NEG) Urine Urobilinogen Dipstick 1.0 mg/dL (0.2 mg/dL) Urine Leukocyte Esterase Negative (NEG) Urine RBC 0 /HPF (0-2) Urine WBC 0 /HPF (0-4) Urine Bacteria 0 /HPF (0-FEW) Laboratory Tests 05/19/19 17:20 Laboratory Tests 05/19/19 17:20 (PROSPER ALCAZAR MD) Lab Values Laboratory Tests Test 05/19/19 17:20 White Blood Count 6.9 x10^3/uL (4.0-11.0) Red Blood Count 4.46 x10^6/uL (4.30-5.70) Hemoglobin 14.4 g/dL (13.0-17.5) Hematocrit 41.2 % (39.0-53.0) Mean Corpuscular Volume 92 fL (79-100) Mean Corpuscular Hemoglobin 32 pg (25-35) Mean Corpuscular Hemoglobin Concent 35 g/dL (31-37) Red Cell Distribution Width 13.1 % (11.5-14.5) Platelet Count 215 x10^3/uL (140-400) Neutrophils (%) (Auto) 56 % (31-73) Lymphocytes (%) (Auto) 35 % (24-48) Monocytes (%) (Auto) 6 % (0-9) Eosinophils (%) (Auto) 2 % (0-3) Basophils (%) (Auto) 1 % (0-3) Neutrophils # (Auto) 3.9 x10^3/uL (1.8-7.7) Lymphocytes # (Auto) 2.4 x10^3/uL (1.0-4.8) Monocytes # (Auto) 0.4 x10^3/uL (0.0-1.1) Eosinophils # (Auto) 0.1 x10^3/uL (0.0-0.7) Basophils # (Auto) 0.1 x10^3/uL (0.0-0.2) Sodium Level 139 mmol/L (136-145) Potassium Level 3.9 mmol/L (3.5-5.1) Chloride Level 100 mmol/L (98-107) Carbon Dioxide Level 26 mmol/L (21-32) Anion Gap 13 (6-14) Blood Urea Nitrogen 12 mg/dL (8-26) Creatinine 1.1 mg/dL (0.7-1.3) Estimated GFR (Cockcroft-Gault) 66.2 BUN/Creatinine Ratio 11 (6-20) Glucose Level 108 mg/dL (70-99) H Calcium Level 9.4 mg/dL (8.5-10.1) Magnesium Level 1.6 mg/dL (1.8-2.4) L Total Bilirubin 0.6 mg/dL (0.2-1.0) Aspartate Amino Transferase (AST) 17 U/L (15-37) Alanine Aminotransferase (ALT) 26 U/L (16-63) Alkaline Phosphatase 119 U/L (46-116) H Troponin I Quantitative < 0.017 ng/mL (0.000-0.055) Total Protein 8.0 g/dL (6.4-8.2) Albumin 4.2 g/dL (3.4-5.0) Albumin/Globulin Ratio 1.1 (1.0-1.7) Lipase 136 U/L (73-393) Ethyl Alcohol Level < 10 mg/dL (0-10) Laboratory Tests 05/19/19 17:20 Laboratory Tests 05/19/19 17:20 (GENA CORRAL MD) EKG EKG Normal sinus rhythm at a rate of 59 bpm, normal axis, normal intervals. There are no acute ischemic ST/T changes.[] (GENA CORRAL MD) Radiology/Procedures Radiology/Procedures [] (GENA CORRAL MD) Radiology/Procedures [facility] [address] [place] [address] IMAGING REPORT Signed PATIENT: SUBHASH FISHMAN JACCOUNT: [id number] : 1950 LOCATION: ER AGE: 69 SEX: M EXAM STATUS: REG ER ORD. PHYSICIAN: GENA CORRAL MD REASON: abdominal pain PROCEDURE: CT ABD PELV W/ IV CONTRST ONLY CT abdomen pelvis with contrast dated 05/19/2019. Comparison made to 04/09/2017. Clinical data indication: Abdominal pain. TECHNIQUE: Per contiguous axial imaging the abdomen and pelvis performed after the intravenous demonstration of 75 cc Omnipaque 350. One or more of the following individualized dose reduction techniques were utilized for this examination: 1. Automated exposure control 2. Adjustment of the mA and/or kV according to patient size 3. Use of iterative reconstruction technique. FINDINGS: Limited images of lung bases show minimal linear density in the right lower lobe, likely scar or atelectasis. Heart size within normal limits. No pleural or pericardial effusion. Diffuse low-density of the liver compatible fatty infiltration. No apparent mass. Gallbladder surgically absent. Spleen is normal in size. Pancreas, adrenal glands and kidneys are unremarkable. No hydronephrosis. Well-circumscribed low-density focus at the midpole right kidney, likely cyst, unchanged. Unopacified GI tract normal in caliber and contour. No focal bowel wall thickening. No inflammatory stranding in the mesentery. The appendix is normal in caliber. Scattered diverticula throughout the colon. No adenopathy or ascites. Abdominal aorta normal in caliber. Images of pelvis show nondistended urinary bladder. Prostate gland is moderately enlarged. No free fluid or pelvic lymphadenopathy. Bone windows show no acute findings. There are postsurgical changes of lower lumbar spine. Multilevel spondylosis. IMPRESSION: 1. No acute abnormality of abdomen or pelvis. 2. Diverticulosis with no evidence of acute diverticulitis. 3. Mild fatty infiltration of the liver. 4. Indeterminate low-density lesion at the midpole right kidney is unchanged from prior study, likely cyst. Electronically signed by: Adam Gibson MD (05/19/2019 7:21 PM) [facility] DICTATED and SIGNED BY: ADAM GIBSON MD DATE: 05/19/191920 (PROSPER ALCAZAR MD) Course & Med Decision Making Course & Med Decision Making 6:00 PM: Patient condition remains stable. Care will be turned over to Dr. Alcazar at shift change, pending urinalysis, CT and final disposition. Report given. Pertinent Labs and Imaging studies reviewed. (See chart for details) [] (GENA CORRAL MD) Course & Med Decision Making CT of abdomen and pelvis did not show acute finding. Labs did not show acute finding. Patient already treated with IV magnesium magnesium of 1.6. Patient felt better and wanted to go home. Patient was advised to take liquid diet. I've spoken with the patient and/or caregivers. I've explained the patient's condition, diagnosis and treatment plan based on information available to me at this time. I've answered the patient's and/or caregivers questions and addressed any concerns. The patient and/or caregivers have a good understanding the patient's diagnosis, condition and treatment plan as can be expected at this point. Vital signs have been stabilized. The patient's condition is stable for discharge from the emergency department. The patient will pursue further outpatient evaluation with her primary care provider or other designated consulting physician as outlined in the discharge instructions. Patient and/or caregivers are agreeable to this plan of care and follow-up instructions have been explained in detail. The patient and/or caregivers have received these instructions in written format and expressed understanding of these discharge instructions. The patient and her caregivers are aware that if any significant change in condition or worsening of symptoms should prompt him to immediately return to this of the closest emergency department. If an emergent department is not readily available I would encourage him to call 911. (PROSPER ALCAZAR MD) Dragon Disclaimer Dragon Disclaimer This electronic medical record was generated, in whole or in part, using a voice recognition dictation system. (GENA CORRAL MD) Departure Departure Impression: Primary Impression: Abdominal pain Additional Impression: Hypomagnesemia Disposition: HOME, SELF-CARE (at 2020) Condition: IMPROVED Referrals: GENA BILLS MD (PCP) Patient Instructions: Abdominal Pain (Nonspecific), Alcohol Problems, Hypoma gnesemia Additional Instructions: Drink plenty of liquids Follow-up with your primary care physician in 3-5 days Return to ER if not getting better Do not eat solid food for the next 24 hours Scripts Hydrocodone/Apap 5-325 (NORCO 5-325 TABLET) 1 Each Tablet 1 TAB PO PRN Q6HRS PRN for PAIN, #10 TAB 0 Refills Prov: PROSPER ALCAZAR MD 05/19/19 Problem Qualifiers Primary Impression: Abdominal pain Abdominal location: epigastric Qualified Codes: R10.13 - Epigastric pain GENA CORRAL MD May 19, 2019 17:24 PROSPER ALCAZAR MD May 19, 2019 19:29
[2019-05-19] MEDS ORDERED: ONDANSETRON PF 4 MG/2 ML VIAL. IV ONE (17:30)
[2019-05-19] MEDS: MORPHINE SULFATE 4 MG/ML VIAL. IV/SQ PRN ×3 (17:33→19:12)
[2019-05-19 17:37] LABS: BASO # 0.1 x10^3/uL (0.0-0.2); BASO % 1 % (0-3); EOS # 0.1 x10^3/uL (0.0-0.7); EOS % 2 % (0-3); HEMATOCRIT 41.2 % (39.0-53.0); HEMOGLOBIN 14.4 g/dL (13.0-17.5); LYMPH # 2.4 x10^3/uL (1.0-4.8); LYMPH % 35 % (24-48); MEAN CORPUSCULAR HEMOGLOBIN 32 pg (25-35); MEAN CORPUSCULAR HGB CONC 35 g/dL (31-37); MEAN CORPUSCULAR VOLUME 92 fL (79-100); MONO # 0.4 x10^3/uL (0.0-1.1); MONO % 6 % (0-9); NEUT # 3.9 x10^3/uL (1.8-7.7); NEUT % 56 % (31-73); PLATELET COUNT 215 x10^3/uL (140-400); RED BLOOD COUNT 4.46 x10^6/uL (4.30-5.70); RED CELL DISTRIBUTION WIDTH 13.1 % (11.5-14.5); WHITE BLOOD COUNT 6.9 x10^3/uL (4.0-11.0)
[2019-05-19 17:42] LABS: CALCIUM 9.4 mg/dL (8.5-10.1); CREATININE 1.1 mg/dL (0.7-1.3); GFR 66.2; POTASSIUM 3.9 mmol/L (3.5-5.1)
[2019-05-19 17:47] LABS: ALBUMIN 4.2 g/dL (3.4-5.0); ALBUMIN/GLOBULIN RATIO 1.1 (1.0-1.7); MAGNESIUM 1.6 mg/dL (1.8-2.4); TOTAL BILIRUBIN 0.6 mg/dL (0.2-1.0)
[2019-05-19 17:53] LABS: PROTHROMBIN TIME PATIENT 13.5 SEC (11.7-14.0)
[2019-05-19] MEDS ORDERED: MAGNESIUM SULFATE 1GM 100 ML IV ONE (18:00)
[2019-05-19] MEDS ORDERED: CONTRAST GIVEN. MC PRN (18:00)
[2019-05-19] MEDS ORDERED: IOHEXOL 300 MG/ML 100ML VIAL. IV ONE (18:30)
[2019-05-19 19:12] LABS: BILIRUBIN,URINE NEGATIVE (NEG); CLARITY,URINE CLEAR; COLOR,URINE YELLOW; NITRITE,URINE NEGATIVE (NEG); PROTEIN,URINE NEGATIVE (NEG-TRACE)
[2019-05-19 19:18] LABS: BACTERIA,URINE 0 /HPF (0-FEW); RBC,URINE 0 /HPF (0-2); WBC,URINE 0 /HPF (0-4)
--- NOTE | 2019-05-19 19:24 | RAD ---
CT abdomen pelvis with contrast dated 05/19/2019. Comparison made to 04/09/2017. Clinical data indication: Abdominal pain. TECHNIQUE: Per contiguous axial imaging the abdomen and pelvis performed after the intravenous demonstration of 75 cc Omnipaque 350. One or more of the following individualized dose reduction techniques were utilized for this examination: 1. Automated exposure control 2. Adjustment of the mA and/or kV according to patient size 3. Use of iterative reconstruction technique. FINDINGS: Limited images of lung bases show minimal linear density in the right lower lobe, likely scar or atelectasis. Heart size within normal limits. No pleural or pericardial effusion. Diffuse low-density of the liver compatible fatty infiltration. No apparent mass. Gallbladder surgically absent. Spleen is normal in size. Pancreas, adrenal glands and kidneys are unremarkable. No hydronephrosis. Well-circumscribed low-density focus at the midpole right kidney, likely cyst, unchanged. Unopacified GI tract normal in caliber and contour. No focal bowel wall thickening. No inflammatory stranding in the mesentery. The appendix is normal in caliber. Scattered diverticula throughout the colon. No adenopathy or ascites. Abdominal aorta normal in caliber. Images of pelvis show nondistended urinary bladder. Prostate gland is moderately enlarged. No free fluid or pelvic lymphadenopathy. Bone windows show no acute findings. There are postsurgical changes of lower lumbar spine. Multilevel spondylosis. IMPRESSION: 1. No acute abnormality of abdomen or pelvis. 2. Diverticulosis with no evidence of acute diverticulitis. 3. Mild fatty infiltration of the liver. 4. Indeterminate low-density lesion at the midpole right kidney is unchanged from prior study, likely cyst. Electronically signed by: Adam Gibson MD (05/19/2019 7:21 PM) [employer]
[2019-05-19] MEDS ORDERED: fentaNYL PF VIAL 100 MCG/2 ML VIAL IVP ONE (19:30)
[2019-05-19 20:20] VITALS: BP 148/66
[2019-05-19] MEDS ORDERED: HYDR-3164 PO ×2 (20:24→20:26)
--- NOTE | 2019-05-20 07:28 | EKG ---
[facility] [address] [place] [address] Test Date: 2019-05-19 Test Time: 17:50:08 Pat Name: SUBHASH FISHMAN Department: Room: Gender: M Director Informatics: : 1950 Requested By: GENA CORRAL Order Number: [id number] Reading MD: Measurements Intervals [place] Rate: 59 P: ME: QRS: 12 QRSD: 80 T: 17 QT: 392 QTc: 392 Interpretive Statements IRREGULAR RHYTHM, NO P-WAVE FOUND NO SPECIFIC ECG ABNORMALITIES RI6.01 No previous ECG available for comparison
== END 2019-05-19 20:45 | disposition home or self-care (01) ==
LOC: ER 16:24
DX: R10.13 Epigastric pain (principal); R10.31 Right lower quadrant pain; R19.7 Diarrhea, unspecified; E83.42 Hypomagnesemia; J44.9 Chronic obstructive pulmonary disease, unspecified; E11.9 Type 2 diabetes mellitus without complications; I10 Essential (primary) hypertension; F10.20 Alcohol dependence, uncomplicated; Z90.49 Acquired absence of other specified parts of digestive tract; Z91.013 Allergy to seafood; Y90.0 Blood alcohol level of less than 20 mg/100 ml
CPT/HCPCS: 36415; 74177; 80053; 81001; 83690; 83735; 84484; 85025; 85610; 85730; 93005; 96361; 96365; 96375; 96376; 99285; G0480; J2270; J2405; J3010; J3475; J7030; Q9967

== ENCOUNTER → 2021-05-27 | Outpatient (CLI) | payer MEDICARE ==
[~2021-05-27] MED LIST changes: +HYDR-3164 PO; -OMEP20CA10 PO; +OMEP20CA16 PO
--- NOTE | 2021-05-27 11:31 | KCIC ---
EXAM: CT LOW-DOSE LUNG SCREENING CLINICAL HISTORY: Reason: Lung cancer screening, smoker of 45+yrs, 2pk/day. / Spl. Instructions: / H istory: COMPARISON: None available. TECHNIQUE: Noncontrast helical low-dose CT chest per standard departmental protocol. PQRS compliance statement - One or more of the following individualized dose reduction techniques wer e utilized for this study: 1. Automated exposure control 2. Adjustment of the mA and/or kV according to patient size 3. Use of iterative reconstruction technique FINDINGS: Multiple bilateral <6 mm lung nodules are grossly stable to 11/18/2018. No new/suspicious lung nodule o r mass is seen. Aortic calcifications are seen. Heart is not enlarged. No pericardial effusion. No pl eural effusion. No pneumothorax. Coronary calcifications are seen. Within the constraints of this low -dose noncontrast examination, no mediastinal or hilar lymphadenopathy. Thyroid is unremarkable. No a xillary lymphadenopathy. Cholecystectomy clips are seen. Upper abdomen is otherwise unremarkable. RECOMMENDATIONS/ IMPRESSION: 1. LUNG-RADS category: 2. Recommend 12 month low-dose CT screening examination per ACR guidelines. Electronically signed by: Keegan Muhammad MD (05/27/2021 11:28 AM) [id number]
== END ==
LOC: KCIC CT 08:14
PROVIDERS: ATTEND Family Medicine
DX: Z12.2 Encounter for screening for malignant neoplasm of respiratory organs (principal); I70.0 Atherosclerosis of aorta; I25.10 Atherosclerotic heart disease of native coronary artery without angina pectoris; Z90.49 Acquired absence of other specified parts of digestive tract
CPT/HCPCS: 71271